=== PATIENT | male | born 1940 | race Caucasian/White ===

== ENCOUNTER → 2025-01-21 13:54 | Outpatient (REF) | payer OTHER, SELFPAY | LOC: RCS 13:54 | PROVIDERS: ATTENDING PHYSICIAN Student in an Organized Health Care Education/Training Program; FAMILY PHYSICIAN Family Medicine | DX: I48.0 Paroxysmal atrial fibrillation (principal) | CPT/HCPCS: 93306 ==

== ENCOUNTER → 2025-08-05 09:18 | Outpatient (REF) | payer OTHER, SELFPAY | LOC: RAD 09:18 | PROVIDERS: ATTENDING PHYSICIAN Student in an Organized Health Care Education/Training Program; FAMILY PHYSICIAN Family Medicine | DX: I48.0 Paroxysmal atrial fibrillation (principal) | CPT/HCPCS: 75572; Q9967 ==

== ENCOUNTER 2025-09-09 05:53 | Inpatient (IN) | payer OTHER, MEDICARE, SELFPAY ==
[2025-08-29 13:03] VITALS: BMI 27.0
[2025-08-29 13:30] LABS: Hematocrit 45.1 % (39.0-52.0); Hemoglobin 15.1 g/dL (13.0-18.0); Mean Corp Hgb Conc. 33.5 g/dL (33.0-37.0); Mean Corpuscular Volume 96.4 fL (80.0-94.0); Nucleated Red Blood Cells % 0 % (-); Platelet Count 168 10^3/uL (130-400); Red Cell Dist. Width 12.8 % (11.5-14.5)
[2025-08-29 13:40] LABS: ALT (SGPT) 26 U/L (0-50); AST (SGOT) 24 U/L (17-59); Albumin 4.4 g/dl (3.5-5.0); Alkaline Phosphatase 93 U/L (38-126); Blood Urea Nitrogen 20 mg/dl (9-20); Calcium 9.6 mg/dl (8.4-10.2); Carbon Dioxide 28 mmol/L (22-30); Chloride 107 mmol/L (98-107); Estimated Creatinine Clearance 55 ml/min; Glucose 117 mg/dl (70-99); Potassium 4.6 mmol/L (3.5-5.1); Sodium 138 mmol/L (135-145); Total Protein 7.5 g/dl (6.3-8.2); eGFR > 60.00
[2025-08-29 13:43] LABS: INR 1.41; PT 17.5 Sec (11.4-14.6)
[2025-09-09] VITALS (10 sets, daily range): BP systolic 90–123; BP diastolic 70–97; BMI 26.8
--- NOTE | 2025-09-09 09:10 | ITS.CL.PN ---
[employer] - Procedure Note
Procedure
Procedure Note:
WATCHMAN LEFT ATRIAL APPENDAGE OCCLUSION REPORT
Date of Procedure: 09/09/2025
Referring: Dr. Shabbir Flores MD, PhD
Indication: atrial fibrillation with high bleeding risk and high strokerisk
Operators: Shabbir Flores MD, PhD (interventional cardiology); Dr. Lizette Hameed MD (electrophysiology); Dr. Graham Casillas MD (cardiac imaging)
Anesthesia: general anesthesia provided by the anesthesia staff
PROCEDURE: left atrial appendage occlusion with a 27 mm Watchman FLX
ACCESS: 14F right common femoral vein (closure: figure of eight stitch) - Ultrasound was utilized for vascular access. The vessel was visualized under ultrasound and noted to be patent. An image of the vessel was stored permanently in the patient's
medical record. Under direct ultrasound guidance, vascular access was obtained using a modified Seldinger technique and an 8 [place] sheath was placed.
HEMODYNAMIC DATA
LA 13 mmHg
PROCEDURE NARRATIVE:
The patient was intubated and sedated by anesthesiology and then prepped and draped in standard sterile fashion. A BLAIR probe was placed by cardiology and imaging performed demonstrating no left atrial appendage thrombus and no pericardial effusion.
Under ultrasound guidance, the right femoral vein was accessed by Dr. Hameed with an 8F sheath placed. Heparin was administered.
The 8F sheath was exchanged over a [email or web address] RF wire for the Watchman double curve sheath which was advanced to the SVC. The Watchman sheath was then pulled back under fluoroscopic and echo guidance until an appropriate inferior and posterior position
on the septum was achieved. During brief RF application, the wire was advanced through the interatrial septum into the left atrium. The wire was placed in the left upper pulmonary vein as confirmed by fluoroscopy and BLAIR. The dilator and sheath
easily tracked across the septum allowing placement of the sheath in the left atrium. Left atrial pressure was measured at 13 mmHg.
A 5F pigtail catheter was advanced through the sheath and placed in the left atrial appendage, and an appendage gram was performed demonstrating anatomy suitable for a 27 mm Watchman FLX device. The device was prepped on the back table, the pigtail
catheter removed, and the device delivered via the sheath to the left atrial appendage by Dr. Flores. The device was deployed slowly under continuous fluoroscopic and BLAIR visualization. After deployment, BLAIR imaging was performed to assess PASS
criteria. The device demonstrated excellent positioning, anchor stability on tug test, appropriate sizing with 21-29% compression, and appropriate seal with no leak at 0, 45, 90, or 135 degrees. Given PASS criteria were met, the device was then
released.
The delivery system retracted back into the sheath and removed from the body. The sheath was retracted into the right atrium with BLAIR demonstrating no significant R-L shunt or pericardial effusion. The sheath was removed and the venotomy closed with
[id number] knot. Protamine 40 mg was given. The patient was extubated and tolerated the procedure well.
CONCLUSIONS
1. transseptal puncture with BLAIR guidance
2. successful deployment of a 27 mm Watchman FLX device under fluoroscopic and BLAIR guidance
RECOMMENDATIONS:
1. anticoagulation with Xarelto for 3 months
2. repeat BLAIR in 3 months
Copy to: Dr. Shabbir Flores MD, PhD (structural layout worker); Dr. Hayden Us MD (PCP)
Signed: Shabbir Flores MD, PhD
[2025-09-09 09:38] LABS: ACT-LR - POC > 397 Seconds (116-155)
--- NOTE | 2025-09-09 09:42 | WATCHMAN.MD ---
Watchman Implant
-
Watchman HENRRY occlusion device implantation:
Mr. Tena is an 84 yrs old gentleman with GI bleeds and advised to stop anticoagulation therapy is here for Watchman implantation.
[id number] score is 4 secondary toage, hypertension, and diabetes.
HAS-BLED score is 4 secondary to hypertension, prior bleeding, age, and anticoagulant
Date of Procedure:
09/09/25
Indications:
Recurrent falls and bleeding with anticoagulation therapy for stroke prevention
Pre-Operative Diagnosis:
Atrial fibrillation with recurrent falls and bleeding
Post-Operative Diagnosis:
Atrial fibrillation with recurrent falls and bleeding
Procedure Performed:
Left atrial appendage occlusion with Watchman implantation (27 mm Watchman FLX Pro left atrial appendage closure device)
Performing Physicians:
BLAIR: Graham Casillas M.D.
Transseptal keno terminal operator: Lizette Hameed MD.
Implanter: Shabbir Flores MD
Anesthesia:
See anesthesia records
Detailed Description of the Procedure:
Written informed consent was obtained from the patient after a full explanation of the risks and benefits of the procedure including the risks of sedation and anesthesia.
The patient was brought to the electrophysiology laboratory in stable condition in fasting state. Continuous electrocardiographic and hemodynamic monitoring was initiated.
The initial rhythm was atrial fibrillation.
The procedure site was meticulously prepared with surgical scrub and allowed to dry with no pooling. Sterile draping was applied to cover the procedure site. The image intensifier was draped with sterile bag and positioned over the patient. After
infusion of local anesthetic, vascular access was obtained under ultrasound guidance and sheaths were placed over guide wire as detailed below.
Sheath and Catheter Placement:
In the right femoral vein, an 8-Wel[place] sheath was placed for Watchman placement procedure.
Sheaths:
Watchman delivery sheath upgraded from 8Fr sheath.
Catheters:
Watchman catheter
Trans-esophageal Echocardiography:
No thrombus noted in the left atrium or left atrial appendage. The HENRRY was imaged and the dimensions were confirmed. Please see separate report for that.
Patient converted to sinus rhythm spontaneously after initial BLAIR was done.
Trans-septal Puncture:
Heparin was initiated and infused to maintain appropriate ACT.
A [employer] RF pigtail guidewire was advanced through the 8-Wel[place] sheath in the right femoral vein into the superior vena cava under fluoroscopic, BLAIR guidance. The 8Fr was upgraded the Watchman sheath and was advanced into the superior vena cava
over the guide wire. A transseptal VersaCross RF pigtail via [employer] connect system was utilized to perform the trans-septal puncture. The apparatus was withdrawn until it was in contact with the fossa ovalis. The position was adjusted based on
fluoroscopy and ultrasound images from BLAIR. Under fluoroscopic, hemodynamic and BLAIR ultrasound guidance, left atrium was cannulated by applying the radiofrequency energy. The right atrial and left atrial pressure was monitored. A guide wire was
placed and was advanced into the left superior pulmonary vein. Both the sheath and the dilator was advanced into the left atrium. The dilator was withdrawn. Blood was aspirated from the sheath and arterial blood confirmed. The sheath was flushed.
Saline injection noted into the left atrium on BLAIR. The LA pressure was recorded. The saline injection was noted in the LA on the BLAIR. A curved pig tail was advanced over the guide wire into the left atrium and the wire was removed.
Left atrial appendage atriography:
The pigtail was advanced into the HENRRY and was confirmed on fluoroscopy and BLAIR. The contrast was injected and the HENRRY shape was recorded in ZHU /Caudal view (25/17 degrees). The size of the HENRRY was again checked and confirmed reviewing the BLAIR and
the fluoroscopy along with previously obtained BLAIR images.
Watchman Deployment:
The Watchman delivery sheath was advanced into the HENRRY over the pigtail till the right marker was at the location of the orifice line marked on the screen. The pigtail was removed and the Watchman delivery system was advanced through the sheath into
the HENRRY till it was aligned with the outer sheath marker inside the HENRRY. The watchman sheath was clicked with the outer sheath. Once acceptable location achieved, the outer sheath was pulled back keeping the device steady at the HENRRY location till a
ball of the device was formed under fluoroscopic guidance. The whole system was advanced further into the HENRRY till adequate depth is achieved into the HENRRY. The HENRRY occluder was deployed and expanded adequately anchoring to the HENRRY. The device was
kept anchored with stable pressure to that location for 10 seconds.
The BLAIR image confirmed adequate expansion. The tug test was done that showed the device is anchored well and is not able to come out. The compression was between 22% and 25% on the three sides. There was no significant leak noted on the Doppler via
BLAIR.
The device was deployed by unscrewing the Watchman device and releasing from the connecting wire. The wire was pulled back into the sheath and the sheath was pulled out of the LA.
Implanted device:
WATCHMAN FLX Pro � 27mm
Procedure End
BLAIR study was done again that showed no epicardial accumulation that was unchanged from earlier. A repeated images showed no change in the pericardial space. No complications noted.
Following the completion of the deployment, catheters were removed. Protamine 40 mg was given at the end of the procedure and ACT was checked repeatedly. The sheath was removed and hemostasis achieved with Fig of 8 suture and manual compression
after acceptable ACT is achieved.
Left atrial Pressure:
Mean LA pressure was 11mmHg
Estimated Blood loss:
10 cc
Specimens Removed:
None.
Implants / Devices:
None
Urine output:
None
Packs / Drains/ Tubes:
None
Instrument / Sponge Count Correct:
Yes
Complications of the Procedure:
None
Condition of Patient at Time of Transfer:
Hemodynamically stable with no neurological or vascular compromise.
Summary:
Successful implantation of the left atrial occlusion device (WATCHMAN FLX Pro� 27mm)
Post procedure Plan for anticoagulation:
Continue Xarelto 20 mg QD for 3 months.
In 3 months, based on BLAIR, will plan to discontinue Xarelto and start ASA 81 mg indefinitely.
--- NOTE | 2025-09-09 11:28 | W.DS.TRANS ---
DC Summary - [employer] Open Die
-
Discharge Instructions:
Discharge Diagnosis/Procedures Atrial fibrillation post Watchman
Diet Low Cholesterol
Driving Restrictions No driving for 24 hours
Others Tests Follow up BLAIR has been scheduled for you at [place]
[facility] on 12/14/[address] Aqu[address] Flores' office will reach out
next week to confirm and review instructions.
Instructions: Atrial fibrillation (DC)
Heart-healthy diet
Left atrial appendage closure (DC)
Stand-Alone Forms: DC Instructions- Cath/EP Lab
Changes to Home Medications: No
Discharge Medications:
DC Medications w/original date entered in [facility]
atorvastatin 20 mg tablet 20 mg PO DAILY High cholesterol 03/21/22
losartan 50 mg tablet 50 mg PO DAILY Blood pressure 03/21/22
potassium chloride 20 mEq tablet,extended release 20 meq PO DAILY Electrolyte Repletion 03/21/22
albuterol sulfate 90 mcg/actuation aerosol inhaler 2 puff inhalation QID PRN wheeze, cough 08/25/25
ascorbic acid (vitamin C) 500 mg tablet (Vitamin C) 500 mg PO HS 08/25/25
folic acid 400 mcg tablet 400 mg PO HS 08/25/25
omega 2-ipk-tzx-fish oil 1,000 mg (120 mg-180 mg) capsule (Fish Oil) 1 cap PO DAILY 08/25/25
pyridoxine (vitamin B6) 100 mg tablet (Vitamin B-6) 100 mg PO HS 08/25/25
rivaroxaban 20 mg tablet (Xarelto) 20 mg PO HS 08/25/25
vitamin E 180 mg PO HS 08/25/25
Home Medication Changes
Pending Results: No
== END 2025-09-09 13:30 | disposition home or self-care (01) | DRG 274 ==
LOC: CATH-IN 05:53
PROVIDERS: Internal Medicine Cardiovascular Disease; ADMITTING PHYSICIAN Student in an Organized Health Care Education/Training Program; FAMILY PHYSICIAN Family Medicine
PROC: B24BZZ4 Ultrasonography of Heart with Aorta, Transesophageal (ICD-10-PCS; 2025-09-09)
PROC: 02L73DK Occlusion of Left Atrial Appendage with Intraluminal Device, Percutaneous Approach (ICD-10-PCS; 2025-09-09)
DX: I48.0 Paroxysmal atrial fibrillation (principal); I10 Essential (primary) hypertension; K57.30 Diverticulosis of large intestine without perforation or abscess without bleeding; R29.6 Repeated falls; E78.5 Hyperlipidemia, unspecified; J98.4 Other disorders of lung; N40.0 Benign prostatic hyperplasia without lower urinary tract symptoms; M19.90 Unspecified osteoarthritis, unspecified site; Z87.01 Personal history of pneumonia (recurrent); Z79.01 Long term (current) use of anticoagulants
CPT/HCPCS: 33340; 36415; 80053; 85025; 85347; 85610; 86850; 86900; 86901; 93005; 93355; C1892; C1894; Q9967